=== PATIENT | male | born 1960 | race Caucasian/White ===

== ENCOUNTER 2020-06-18 19:22 | Emergency (ER) | payer BC ==
[2020-06-18] MEDS ORDERED: Ondansetron 4 MG/2 ML SDV IVPUSH ONE (20:11)
[2020-06-18] MEDS ORDERED: Sodium Chloride 0.9% 1,000 ML IV ONE (20:11)
[2020-06-18] MEDS ORDERED: Scopolamine 1.5 MG Transdermal Patch TRDERM PRN (20:24)
--- NOTE | 2020-06-18 20:31 | EDM.PDOC ---
ED HPI GENERAL MEDICAL PROBLEM - General Chief Complaint: General Stated Complaint: VOMITING Time Seen by Provider: 06/18/20 20:10 Source of Information: Reports: Patient - History of Present Illness INITIAL COMMENTS - FREE TEXT/NARRATIVE: patient has siginificant PMH of motion sickness. Developed symptoms Tuesday after watching a video. Symptoms persisted throughout Tuesday night. Tuesday patient was feeling better. Drove up 6 hours to [place] and developed N/V again. Presents to ED stating "this is motion sickness, I have been having this ever since I was a little kid", "I just need IV fluids, compazing and something to "knock me out" for a couple of hours. Denies any CP, SOB, diarrhea, abdominal pain, back pain, MAURICE, dizziness. We discussed stroke work up and patient states he only wants IV fluids, compazine, and something to knock him out so he can sleep in the ED for a few hours. Patient asked again and we discussed the risks of having no further work up for stroke or any other possible diagnosis, he continues to refuse further workup. "I take xaralto, so I know this is not a stroke". Associated Symptoms: Reports: Nausea/Vomiting - Related Data Allergies Allergy/AdvReac Type Severity Reaction Status Date / Time Penicillins Allergy Hives Verified 06/18/20 21:45 Home Meds: Home Meds Ondansetron [Zofran ODT] 4 mg PO Q6H PRN #20 tab.dis 06/18/20 [Rx] Rivaroxaban [Xarelto] 20 mg PO DAILY 06/18/20 [History] ED ROS GENERAL - Review of Systems Review Of Systems: See Below Constitutional: Reports: No Symptoms HEENT: Reports: No Symptoms Respiratory: Reports: No Symptoms Cardiovascular: Reports: No Symptoms Endocrine: Reports: No Symptoms GI/Abdominal: Reports: Nausea, Vomiting : Reports: No Symptoms. Denies: Flank Pain Musculoskeletal: Reports: No Symptoms Skin: Reports: No Symptoms Neurological: Reports: No Symptoms. Denies: Confusion, Dizziness, Headache Psychiatric: Reports: No Symptoms Hematologic/Lymphatic: Reports: Easy Bleeding (patient takes xarelto for factor 8 Leiden) ED EXAM, GENERAL - Physical Exam Exam: See Below Exam Limited By: No Limitations General Appearance: Alert, Anxious, Mild Distress Ears: Normal External Exam, Normal Canal, Normal TMs Ear Exam: Bilateral Ear: TM normal Nose: Normal Inspection Throat/Mouth: Normal Inspection, Normal Voice Head: Atraumatic Neck: Normal Inspection, Non-Tender, Full Range of Motion Respiratory/Chest: No Respiratory Distress, Lungs Clear, Normal Breath Sounds Cardiovascular: Normal Peripheral Pulses, Regular Rate, Rhythm, No Edema, No JVD, Tachycardia GI/Abdominal: Normal Bowel Sounds, Soft, No Organomegaly (Male) Exam: Deferred Rectal (Males) Exam: Deferred Back Exam: Normal Inspection Extremities: Normal Inspection Neurological: Alert, Oriented, No Motor/Sensory Deficits Psychiatric: Normal Affect, Normal Mood Skin Exam: Warm, Dry, Intact Course - Vital Signs Last Recorded V/S: Last Vital Signs Temp 96.8 F L 06/18/20 19:50 Pulse 90 06/18/20 19:50 Resp 20 06/18/20 19:50 BP 145/94 H 06/18/20 19:50 Pulse Ox 98 06/18/20 19:50 - Orders/Labs/Meds Meds: Medications Discontinued Medications Generic Name Dose Route Start Last Admin Trade Name José PRN Reason Stop Dose Admin Sodium Chloride 1,000 mls @ 1,000 mls/hr 06/18/20 20:11 06/18/20 20:06 Normal Saline IV 06/18/20 21:10 1,000 mls/hr .BOLUS ONE Administration Ondansetron HCl 8 mg 06/18/20 20:11 06/18/20 20:13 Zofran IVPUSH 06/18/20 20:12 8 mg ONETIME ONE Administration Ondansetron HCl 20 mg 06/18/20 22:00 Zofran Odt .ROUTE 06/18/20 22:01 .STK-MED ONE Prochlorperazine Edisylate 10 mg 06/18/20 21:51 06/18/20 21:54 Compazine IVPUSH 06/18/20 21:52 10 mg ONETIME ONE Administration Prochlorperazine Edisylate Confirm 06/18/20 22:02 06/18/20 22:01 Compazine Administered 06/18/20 22:03 Not Given Dose 10 mg .ROUTE .STK-MED ONE Scopolamine 1.5 mg 06/18/20 20:24 06/18/20 21:10 Transderm-Scop TRDERM 1.5 mg Q72H PRN Administration Nausea/Vomiting Departure - Departure Time of Disposition: 22:40 Disposition: Home, Self-Care 01 Clinical Impression: Nausea and vomiting Qualifiers: Vomiting type: unspecified Vomiting Intractability: unspecified Qualified Code(s): R11.2 - Nausea with vomiting, unspecified - Discharge Information *PRESCRIPTION DRUG MONITORING PROGRAM REVIEWED*: Not Applicable *COPY OF PRESCRIPTION DRUG MONITORING REPORT IN PATIENT BARBIE: Not Applicable Prescriptions: Ondansetron [Zofran ODT] 4 mg PO Q6H PRN #20 tab.dis PRN Reason: Nausea Instructions: Nausea, Adult, Nausea and Vomiting, Adult, [id number] Referrals: PCP,None [Primary Care Provider] - Forms: ED Department Discharge Additional Instructions: Return to ED for any increased or new concerning symtoms. Keep the scopolamine patch in place for the next 72 hours. Take the zofran 4-8mg by mouth every 6 hours as needed for nausea, take this when you start to feel nauseated. Small sips of water, advance diet slowly over the next 24 hours. Rest, ice chips, popsicles tonight. Follow up with your primary MD when you return home as needed. - Problem List Review Problem List Initiated/Reviewed/Updated: Yes - Assessment/Plan Assessment:: patient resting, states the nausea is better.
[2020-06-18] MEDS ORDERED: Prochlorperazine 10 MG/2 ML SDV IVPUSH ONE (21:51)
[2020-06-18] MEDS ORDERED: Ondansetron 4 MG Tab.DIS ONE (22:00)
[2020-06-18] MEDS ORDERED: Prochlorperazine 10 MG/2 ML SDV ONE (22:02)
== END 2020-06-18 22:35 | disposition home or self-care (01) ==
LOC: LB.ED 19:22
DX: R11.2 Nausea with vomiting, unspecified (principal); R00.0 Tachycardia, unspecified; Z79.01 Long term (current) use of anticoagulants; Z88.0 Allergy status to penicillin
CPT/HCPCS: 96361; 96374; 96375; 99283; A9270; J0780; J2405; J7030; 99284